=== PATIENT | male | born 1990 | race Caucasian/White ===

== ENCOUNTER 2020-09-19 20:45 | Outpatient (REF) | payer OTHER, SELFPAY ==
[2020-09-23 21:53] LABS: Patient Race White; SARS-CoV-2 RNA Undetected (Undetected); SARS-CoV-2 Specimen Source Nasal
== END 2020-09-19 21:05 ==
LOC: NCHCN 20:45
PROVIDERS: Visit Provider Nurse Practitioner Family
DX: Z11.59 Encounter for screening for other viral diseases (principal)
CPT/HCPCS: U0003

== ENCOUNTER 2021-07-29 14:32 | Outpatient (CLI) | payer OTHER, SELFPAY ==
--- NOTE | 2021-07-29 14:15 | DI.RAD_ITS ---
Exam(s) XR JOINT SURVEY 1V EXAM: XR JOINT SURVEY 1V INDICATION: sternum pain. COMPARISON: CR STERNUM MIN 2V from 06/23/2021 CR STERNUM MIN 2V from 06/23/2021 TECHNIQUE: 2D digital imaging was performed. FINDINGS: The medial ends of both clavicles are unremarkable and intact. No acute or healing fracture is seen. The sternum is poorly visualized on the AP view. Oblique and lateral views of the sternum should b e considered for further evaluation. Alternatively a CT scan of the chest may be obtained. IMPRESSION: DATA REPOSITORY: RADIATION DOSE DELIVERED:
== END 2021-07-29 14:33 | disposition home or self-care (01) ==
LOC: DIORS 14:33
PROVIDERS: Visit Provider Student in an Organized Health Care Education/Training Program
DX: R07.89 Other chest pain (principal)
CPT/HCPCS: 77073